=== PATIENT | female | born 1995 | race African-American/Black ===

== ENCOUNTER 2017-04-24 12:16 | Emergency (ER) | payer OTHER, SELFPAY ==
[2017-04-24] MEDS ORDERED: Acetaminophen 325 MG TAB ONE (14:15)
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
== END 2017-04-24 15:58 | disposition home or self-care (01) ==
LOC: ERS 12:16
DX: R51 Headache (principal); R07.89 Other chest pain; V89.2XXA Person injured in unspecified motor-vehicle accident, traffic, initial encounter
CPT/HCPCS: 71020

== ENCOUNTER 2024-05-19 12:11 | Emergency (ER) | payer BC | END 2024-05-19 13:20 | disposition home or self-care (01) | LOC: ERS 12:11 | DX: J06.9 Acute upper respiratory infection, unspecified (principal) | CPT/HCPCS: 71046; 87428 ==